=== PATIENT | male | born 1995 | race Caucasian/White ===

== ENCOUNTER 2017-02-28 14:29 | Emergency (ER) | payer OTHER ==
--- NOTE | 2017-02-28 14:44 | EDM.PDOC ---
ED HPI GENERAL MEDICAL PROBLEM - General Stated Complaint: SICK Time Seen by Provider: 02/28/17 14:36 - History of Present Illness INITIAL COMMENTS - FREE TEXT/NARRATIVE: HISTORY AND PHYSICAL: History of present illness: Patient is 21-year-old male presents with concern of white cutaneous material noted when retracting foreskin he along drive [place] he denies any dysuria frequency hesitancy or other concerns he denies diabetes there is no other genital lesions or other concerns and no testicular pain. Review of systems: As per history of present illness and below otherwise all systems reviewed and negative. Past medical history: As per history of present illness and as reviewed below otherwise noncontributory. Surgical history: As per history of present illness and as reviewed below otherwise noncontributory. Social history: No reported history of drug or alcohol abuse. Family history: As per history of present illness and as reviewed below otherwise noncontributory. Physical exam: HEENT: Atraumatic, normocephalic, pupils reactive, negative for conjunctival pallor or scleral icterus, mucous membranes moist, throat clear, neck supple, nontender, trachea midline. Lungs: Clear to auscultation, breath sounds equal bilaterally, chest nontender. Heart: S1S2, regular, negative for clicks, rubs, or JVD. Abdomen: Soft, nondistended, nontender. Negative for masses or hepatosplenomegaly. Negative for costovertebral tenderness. Pelvis: Stable nontender. Genitourinary: Patient has a thick whitish discharge upon retraction of his foreskin consistent with yeast Rectal: Deferred. Extremities: Atraumatic, negative for cords or calf pain. Neurovascular unremarkable. Neuro: Awake, alert, oriented. Cranial nerves II through XII unremarkable. Cerebellum unremarkable. Motor and sensory unremarkable throughout. Exam nonfocal. Diagnostics: UA for GC and Chlamydia urine for C&S Therapeutics: None Impression: #1 cutaneous Yanique Definitive disposition and diagnosis as appropriate pending reevaluation and review of above. ED ROS GENERAL - Review of Systems Review Of Systems: ROS reveals no pertinent complaints other than HPI. ED EXAM, GENERAL - Physical Exam Exam: See Below (See dictation) Course - Orders/Labs/Meds Orders: Active Orders 24 hr Category Date Time Status CHLAMYDIA TRACHOMATIS/GC AMPLF Stat Lab 02/28/17 14:38 Ordered CULTURE URINE [RM] Stat Lab 02/28/17 14:38 Uncollected UA W/MICROSCOPIC [URIN] Stat Lab 02/28/17 14:38 Uncollected Departure - Departure Time of Disposition: 14:43 Disposition: Home, Self-Care 01 Condition: good Clinical Impression: Cutaneous candidiasis - Discharge Information Additional Instructions: The following information is given to patients seen in the emergency department who are being discharged to home. This information is to outline your options for follow-up care. We provide all patients seen in our emergency department with a follow-up referral. The need for follow-up, as well as the timing and circumstances, are variable depending upon the specifics of your emergency department visit. If you don't have a primary care physician on staff, we will provide you with a referral. We always advise you to contact your personal physician following an emergency department visit to inform them of the circumstance of the visit and for follow-up with them and/or the need for any referrals to a consulting specialist. The emergency department will also refer you to a specialist when appropriate. This referral assures that you have the opportunity for followup care with a specialist. All of these measure are taken in an effort to provide you with optimal care, which includes your followup. Under all circumstances we always encourage you to contact your private physician who remains a resource for coordinating your care. When calling for followup care, please make the office aware that this follow-up is from your recent emergency room visit. If for any reason you are refused follow-up, please contact the [facility] emergency department at and asked to speak to the emergency department charge nurse. [facility] [address] [place] [address] [id number] [facility] directed followup private medical doctor in our clinic above is discussed return as needed as discussed - My Orders Last 24 Hours: My Active Orders 02/28/17 14:38 CHLAMYDIA TRACHOMATIS/GC AMPLF Stat CULTURE URINE [RM] Stat UA W/MICROSCOPIC [URIN] Stat - Assessment/Plan Last 24 Hours: My Active Orders 02/28/17 14:38 CHLAMYDIA TRACHOMATIS/GC AMPLF Stat CULTURE URINE [RM] Stat UA W/MICROSCOPIC [URIN] Stat
[2017-02-28 15:42] VITALS: BP 134/90
== END 2017-02-28 15:36 | disposition home or self-care (01) ==
LOC: MW.ED 14:29
DX: B37.9 Candidiasis, unspecified (principal)
CPT/HCPCS: 81001; 82962; 87086; 87491; 87591; 99282; 99283

== ENCOUNTER 2017-03-01 22:42 | Emergency (ER) | payer SELFPAY ==
[2017-03-01] MEDS ORDERED: Cephalexin 500 MG Cap PO ONE (23:16)
--- NOTE | 2017-03-01 23:20 | EDM.PDOC ---
ED HPI GENERAL MEDICAL PROBLEM - General Chief Complaint: Medication Administration Stated Complaint: PT HAS RASH Time Seen by Provider: 03/01/17 22:47 - History of Present Illness INITIAL COMMENTS - FREE TEXT/NARRATIVE: HISTORY AND PHYSICAL: History of present illness: Patient is a 21-year-old white male who returns for pain and rash to genital area he was discharged the other day with diagnosis of cutaneous candidiasis he states that no improvement although he does work in a sweaty hot environment he does raise concerns about possibility of course of other etiologies including herpes. He denies any exposure he is monogamous with his girlfriend and has no complaints he's not had any history of STD Review of systems: As per history of present illness and below otherwise all systems reviewed and negative. Past medical history: As per history of present illness and as reviewed below otherwise noncontributory. Surgical history: As per history of present illness and as reviewed below otherwise noncontributory. Social history: No reported history of drug or alcohol abuse. Family history: As per history of present illness and as reviewed below otherwise noncontributory. Physical exam: : Patient does have thick whitish discharge and an erythematous area around the glans with some erythema on maculopapular rash extending around the scrotum and groin there is no urethral discharge and exam is basically unchanged from the prior day Diagnostics: Herpes culture HSV IgG IgM Therapeutics: Keflex 500 mg by mouth Impression: Genitourinary rash etiology to be determined Definitive disposition and diagnosis as appropriate pending reevaluation and review of above. - Related Data Allergies Allergy/AdvReac Type Severity Reaction Status Date / Time No Known Allergies Allergy Verified 03/01/17 22:56 Home Meds: Home Meds . [No Known Home Meds] 02/28/17 [History] Past Medical History - Past Health History Medical/Surgical History: Denies Medical/Surgical History - Past Surgical History GI Surgical History: Reports: Appendectomy Social & Family History - Family History Family Medical History: Noncontributory - Tobacco Use Smoking Status *Q: Never Smoker - Alcohol Use Days Per Week of Alcohol Use: 2 Number of Drinks Per Day: 6 Total Drinks Per Week: 12 - Recreational Drug Use Recreational Drug Use: No ED ROS GENERAL - Review of Systems Review Of Systems: ROS reveals no pertinent complaints other than HPI. ED EXAM, GENERAL - Physical Exam Exam: See Below (See dictation) Course - Vital Signs Text/Narrative:: I discussed with patient and mother unclear etiology at this point and patient will now be prescribed a combination of antifungal steroid antibiotic cream in the form of Mycolog/Bactroban he'll also plan Keflex and will again be given urology for followup and I did discuss that it is not impossible that this may represent herpes or another etiology Demetrius ultimately determined by the culture and serology they understand and agree Last Recorded V/S: Last Vital Signs Temp 36.9 C 03/01/17 22:45 Pulse 108 H 03/01/17 22:45 Resp 18 03/01/17 22:45 BP 135/84 03/01/17 22:45 Pulse Ox 96 03/01/17 22:45 - Orders/Labs/Meds Orders: Active Orders 24 hr Category Date Time Status HERPES SIMP IGM AB [REF] Stat Lab 03/01/17 23:09 Ordered HSV IGG1&2 DIFF [REF] Stat Lab 03/01/17 23:10 Ordered Departure - Departure Time of Disposition: 23:19 Disposition: Home, Self-Care 01 Condition: good Clinical Impression: Rash - Discharge Information Forms: ED Department Discharge Additional Instructions: The following information is given to patients seen in the emergency department who are being discharged to home. This information is to outline your options for follow-up care. We provide all patients seen in our emergency department with a follow-up referral. The need for follow-up, as well as the timing and circumstances, are variable depending upon the specifics of your emergency department visit. If you don't have a primary care physician on staff, we will provide you with a referral. We always advise you to contact your personal physician following an emergency department visit to inform them of the circumstance of the visit and for follow-up with them and/or the need for any referrals to a consulting specialist. The emergency department will also refer you to a specialist when appropriate. This referral assures that you have the opportunity for followup care with a specialist. All of these measure are taken in an effort to provide you with optimal care, which includes your followup. Under all circumstances we always encourage you to contact your private physician who remains a resource for coordinating your care. When calling for followup care, please make the office aware that this follow-up is from your recent emergency room visit. If for any reason you are refused follow-up, please contact the [facility] emergency department at and asked to speak to the emergency department charge nurse. [facility] [address] [place] [id number] Mycolog/Bactroban Keflex as prescribed followup urology as discussed return as needed as discussed. - My Orders Last 24 Hours: My Active Orders 03/01/17 23:09 HERPES SIMP IGM AB [REF] Stat 03/01/17 23:10 HSV IGG1&2 DIFF [REF] Stat - Assessment/Plan Last 24 Hours: My Active Orders 03/01/17 23:09 HERPES SIMP IGM AB [REF] Stat 03/01/17 23:10 HSV IGG1&2 DIFF [REF] Stat
[2017-03-02 01:11] VITALS: BP 134/90
== END 2017-03-01 23:50 | disposition home or self-care (01) ==
LOC: MW.ED 22:42
DX: R21 Rash and other nonspecific skin eruption (principal); Z90.49 Acquired absence of other specified parts of digestive tract
CPT/HCPCS: 86694; 87070; 87252; 87254; 99283; A9270; 36415; 87077; 87186